=== PATIENT | male | born 2000 | race Two or more races ===

== ENCOUNTER 2021-07-21 10:08 | Emergency (ER) | payer SELFPAY ==
[~2021-07-21] VITALS: Ht 172.7 cm; Wt 61.2 kg
[2021-07-21 10:50] VITALS: BP 130/83
== END 2021-07-21 11:16 | disposition home or self-care (01) ==
LOC: ER 10:08 → EDBD 10:08 → ER 11:16
DX: S16.1XXA Strain of muscle, fascia and tendon at neck level, initial encounter (principal); V43.52XA Car driver injured in collision with other type car in traffic accident, initial encounter; Y93.89 Activity, other specified; Y92.410 Unspecified street and highway as the place of occurrence of the external cause; Y99.8 Other external cause status
CPT/HCPCS: 72040